=== PATIENT | female | born 1985 | race Caucasian/White ===

== ENCOUNTER 2017-02-08 07:05 | Inpatient (IN) | payer OTHER ==
[2017-02-08 07:31] LABS: Amorphous Sediment,Urine Rare /hpf; Appearance,Urine Cloudy (Clear); Bacteria,Urine Rare /hpf; Bilirubin,Urine Negative (Negative); Glucose,Urine (UA) Negative (Negative); Ketones,Urine Negative (Negative); Leukocyte Esterase,Urine Large (Negative); Mucus,Urine Rare /hpf; Nitrite,Urine Negative (Negative); PH, Urine 7.5 (5.0-8.0); Particle Count 12874; Protein,Urine Trace (Negative); RBC,Urine 3 /hpf (0-5); Specific Gravity,Urine 1.022 (1.001-1.035); Squamous Epithelial Cell,Urine 18 /hpf (0-4); UA Billing (MACRO vs. MICRO) MICRO; WBC,Urine 54 /hpf (0-5)
[2017-02-08] MEDS ORDERED: TERBUTALINE 1 MG/ML VIAL SQ PRN (07:51)
[2017-02-08] MEDS ORDERED: OXYTOCIN 10 UNIT/ML 1 ML VIAL IM PRN (07:51)
[2017-02-08] MEDS ORDERED: LIDOCAINE 1% (PF) 10 MG/ML (30 ML SDV) SQ PRN (07:51)
[2017-02-08] MEDS ORDERED: METHYLERGONOVINE 0.2 MG/ML 1 ML AMP IM PRN (07:51)
[2017-02-08] MEDS ORDERED: CARBOPROST TROMETHAMINE 250 MCG/ML 1 ML AMP IM PRN (07:51)
[2017-02-08] MEDS ORDERED: AMPICILLIN 2,000 MG in SODIUM CHLORIDE 0.9% 100 ML IVPB STA (07:51)
[2017-02-08] MEDS ORDERED: BETAMET ACET-BETAMETH SOD PHOS 6 MG/ML VIAL IM SCH (08:00)
[2017-02-08 08:03] VITALS: RESP 16
[2017-02-08] MEDS: LACTATED RINGERS 1,000 ML IV SCH ×2 (08:06→13:00)
[2017-02-08 08:27] LABS: Basophils # (A) 0.1 k/uL (0-0.2); Basophils % (A) 0 %; CH 30.7; CHCM 33.6; Eosinophils # (A) 0.2 k/uL (0-0.7); Eosinophils % (A) 1 %; HCT 36.7 % (34.0-46.0); HDW 2.47; HGB 12.2 gm/dL (11.4-16.0); Luc # (Auto) 0.21; Luc % (Auto) 1; Lymphocytes # (A) 2.3 k/uL (1.0-4.8); Lymphocytes % (A) 16 %; MCH 30.6 pg (25.0-35.0); MCHC 33.3 g/dL (31.0-37.0); Mean Platelet Volume 6.8; Monocytes # (A) 0.7 k/uL (0-1.0); Monocytes % (A) 5 %; Neutrophils % (A) 76 %; RBC 3.99 m/uL (3.80-5.40); RDW 12.8 % (11.5-15.5); WBC 14.5 k/uL (3.8-10.6); WBC (Perox) 14.68
[2017-02-08] MEDS ORDERED: MAGNESIUM SULFATE-D5W PMX 1 GM in DEXTROSE/WATER 1 100ML.BAG IVPB SCH (08:30)
[2017-02-08] MEDS ORDERED: MAGNESIUM SULFATE-WATER PMX 20 GM in WATER FOR INJECTION 1 500ML.BAG IV SCH (08:45)
[2017-02-08] MEDS ORDERED: MAGNESIUM SULFATE-WATER PMX 4 GM in WATER FOR INJECTION 1 50ML.BAG IVPB ONE (09:00)
--- NOTE | 2017-02-08 09:06 | P.HPOB ---
History of Present Illness H&P Date: 02/08/17 Chief Complaint: labor 31 year old presents at 31 weeks 2 days in labor. She is chika every 5-7 minutes and her cervix is 5/100/-2. heart tones 135-140 with moderate variability and reactive. Review of Systems All systems: negative Constitutional: Denies chills, Denies fever Eyes: denies blurred vision, denies pain Ears, nose, mouth and throat: Denies headache, Denies sore throat Cardiovascular: Denies chest pain, Denies shortness of breath Respiratory: Denies cough Gastrointestinal: Denies abdominal pain, Denies diarrhea, Denies nausea, Denies vomiting Genitourinary: Denies dysuria, Denies hematuria Musculoskeletal: Denies myalgias Integumentary: Denies pruritus, Denies rash Neurological: Denies numbness, Denies weakness Psychiatric: Denies anxiety, Denies depression Endocrine: Denies fatigue, Denies weight change Past Medical History Past Medical History: No Reported History Additional Past Medical History / Comment(s): Obstetric history: THis is her first . She has had care through [facility] with Dr Saavedra since 12 weeks. Her dating is by LMP and confirmed with early US. O neg, Rub Imm, RPR NR, Hep B neg. Did receive Rhogam on 3-14 at 29 weeks. normal anatomy US-male. History of Any Multi-Drug Resistant Organisms: None Reported Past Surgical History: Bariatric Surgery Additional Past Surgical History / Comment(s): Gastric Sleeve Procedure 2014 Past Psychological History: No Psychological Hx Reported Smoking Status: Never smoker Past Alcohol Use History: None Reported Past Drug Use History: None Reported Medications and Allergies Home Medications Medication Instructions Recorded Confirmed Type Pnv with Ca,No.72/Iron/FA 1 each PO DAILY 10/27/16 10/27/16 History [ Plus Tablet] Allergies Allergy/AdvReac Type Severity Reaction Status Date / Time No Known Allergies Allergy Verified 10/27/16 18:38 Exam Osteopathic Statement: *. No significant issues noted on an osteopathic structural exam other than those noted in the History and Physical/Consult. - Vital Signs Vital signs: Vital Signs Temp Pulse Resp BP 02/08/17 07:58 96.9 F L 78 16 116/72 Intake and Output 02/07/17 02/08/17 02/08/17 22:59 06:59 14:59 Other: Weight 108.862 kg Patient Weight 02/09/17 06:59 Weight 108.862 kg HEart: RRR Lungs: CTAB Abdomen: soft, nontender Extremeties: neg ella's Results Result Diagrams: 02/08/17 08:00 Abnormal Lab Results - Last 24 Hours (Table) 02/08/17 02/08/17 Range/Units 07:16 08:00 WBC 14.5 H (3.8-10.6) k/uL Neutrophils # 11.0 H (1.3-7.7) k/uL Urine Appearance Cloudy H (Clear) Urine Protein Trace H (Negative) Urine Blood Moderate H (Negative) Ur Leukocyte Esterase Large H (Negative) Urine WBC 54 H (0-5) /hpf Ur Squamous Epith Cells 18 H (0-4) /hpf Amorphous Sediment Rare H (None) /hpf Urine Bacteria Rare H (None) /hpf Urine Mucus Rare H (None) /hpf Assessment and Plan (1) labor in third trimester Status: Acute Plan: 1. I had a long discussion with the patient and her regarding and what to expect. We have a level I nursery so ideally she would be transferred to another facility with a NICU to deliver. I discussed the case with the physicians at [facility] and they will accept transfer of her if her cervix does not change within 2 hours. If she needs to delivery here she is well aware the baby will be stabilized and shipped to another facility. All questions were answered and she and the father of the baby expressed understanding. 2. I did start Magnesium sulfate for neuro protection 3. She will have celestone injection given 4. antibiotics for GBS ppx 5. US for size and position of fetus
[2017-02-08 09:10] VITALS: BMI 42.5
--- NOTE | 2017-02-08 09:56 | US ---
EXAMINATION TYPE: US OB >= 14 wk fetus DATE OF EXAM: 02/08/2017 9:45 AM COMPARISON: Previous study dated 10/27/2016. CLINICAL HISTORY: laborContractions. TECHNIQUE: Transabdominal (TA) GESTATIONAL AGE / DATING Physician Established: (31 weeks/4 days) EDC: 04/08/2017 Dates by Current Scan: (30 weeks/4 days) EDC: 04/15/2017 SURVEY IUP: Single PLACENTA: Anterior PREVIA: No Previa BASILIA: 12.3 cm Normal CERVICAL LENGTH (transabdominal: norm > 3.0cm): 2.4 cm BIOMETRY PRESENTATION: Vertex LIE: Longitudinal BPD: 7.7 cm 30 weeks / 6 days HC: 28.1 cm 30 weeks / 5 days AC: 30.0 cm 32 weeks / 0 days FL: 5.9 cm 30 weeks / 5 days ESTIMATED WEIGHT IN GRAMS: 1758 grams ESTIMATED WEIGHT IN LBS/OZS: 3 lbs. 14 oz. WEIGHT PERCENTAGE BASED ON ESTABLISHED DATES: 32.5% HC/AC: 1.0 Normal FL/AC: 21.1 Normal HEART RATE: 138 bpm RHYTHM: Normal Live IUP measuring 30 weeks 4 days. Short cervix measured transabdominally only per nurse with no si gn of funneling as visualized. IMPRESSION: CHU FETUS PRESENT IN A VERTEX LIE WITH A GESTATIONAL AGE OF 30 WEEKS 4 DAYS +/- 3 WEEKS. ESTIMA CRISTIN DATE OF CONFINEMENT BASED ON THIS EXAMINATION IS 04/15/2017
[2017-02-08] MEDS ORDERED: WITCH HAZEL 1 EACH MED..PAD TOPICAL PRN (11:20)
[2017-02-08] MEDS ORDERED: diphenhydrAMINE 25 MG CAP PO PRN (11:20)
[2017-02-08] MEDS ORDERED: ZOLPIDEM 5 MG TAB PO PRN (11:20)
[2017-02-08] MEDS ORDERED: Acetaminophen-Codeine 300-30mg TAB PO PRN ×2 (11:20)
[2017-02-08] MEDS ORDERED: diphenhydrAMINE 50 MG CAP PO PRN (11:20)
[2017-02-08] MEDS ORDERED: SIMETHICONE 80 MG CHEWABLE PO PRN (11:20)
[2017-02-08] MEDS ORDERED: IBUPROFEN 600 MG TAB PO PRN (11:20)
[2017-02-08] MEDS ORDERED: BENZOCAINE/MENTHOL SPRAY 1 GM/SPRAY AEROSOL TOPICAL PRN (11:20)
[2017-02-08] MEDS ORDERED: diphenhydrAMINE 50 MG/ML 1 ML VIAL IVP PRN ×2 (11:20)
[2017-02-08] MEDS ORDERED: HYDROCORTISONE 2.5% RECTAL CREAM 30 GM TUBE RECTAL PRN (11:20)
[2017-02-08] MEDS ORDERED: ACETAMINOPHEN TAB 325 MG TAB PO PRN (11:20)
[2017-02-08] MEDS ORDERED: Rhogam IMMUNE GLOBULIN 1,500 UNIT/1 ML IM ONE (11:20)
[2017-02-08] MEDS ORDERED: LANOLIN CREAM 5 GM TUBE TOPICAL PRN (11:20)
--- NOTE | 2017-02-08 11:25 | P.PROBDLV ---
Vaginal Delivery Note - . Vaginal Delivery Note: 31-year-old presented at 39 weeks and 2 days in active labor. Her cervix was 5 cm dilated, 100% effaced, -2 station. She is chika every 5-7 minutes. heart tones 135-140 with moderate variability and reactive. She was given one dose of Celestone and started on ampicillin prophylaxis. She was also started on magnesium sulfate. The plan was to send her to a tertiary facility if her cervix exam did not change. 2 hours later though her cervix was 8 cm dilated, her percent effaced and -2 station. She was too unstable to transfer. At 10:53 AM she was completely dilated so amniotomy was performed and clear fluid was noted. She pushed a couple times and delivered a vigorous viable male over intact perineum at 11 AM. Head delivered OA, anterior shoulder with the left shoulder delivered gentle downward traction followed by posterior shoulder and rest of body. Nose and mouth bulb suctioned, cord clamped and cut, placed on mother's abdomen. Apgars pending. Weight 3 lbs. 10 oz. Placenta delivered spontaneously, intact with three-vessel cord at 11:02 AM. Vagina, cervix, and perineum were inspected. Bilateral labial lacerations were repaired with 3-0 Vicryl. Estimated blood loss 200 mL. Mother is in stable condition and baby was taken to the nursery with the canine enforcement officer.
[2017-02-08] MEDS ORDERED: AMPICILLIN 1,000 MG in SODIUM CHLORIDE 0.9% 50 ML IVPB SCH (12:00)
[2017-02-08 17:11] VITALS: BP 125/72; PULSE 74; TEMP 98.3
[2017-02-08] MEDS ORDERED: SENNOSIDES-DOCUSATE SODIUM 1 EACH TAB PO SCH (20:00)
--- NOTE | 2017-02-11 13:03 | P.DS ---
Providers Date of admission: 02/08/17 08:02 Expected date of discharge: 02/08/17 Attending physician: Reema Stewart Primary care physician: Reema Stewart - Discharge Diagnosis(es) (1) labor in third trimester Status: Resolved (2) Normal vaginal delivery Status: Acute Hospital Course: 31-year-old female presented at 31 weeks and 2 days in active labor. She was given Celestone and magnesium sulfate as well as antibiotics. Her labor did not stop and she did deliver vaginally without capitation. The baby was taken to the nursery and stabilized by the clay processing labourer then shipped to [facility] facility. The patient's course was uncomplicated. Her bleeding was decreasing. She denied nausea, vomiting, chest and, shortness of breath or calf pain. She is able to tolerate a regular diet. She was discharged home about 4 hours after her delivery so she could go with her baby. Patient Condition at Discharge: Good Plan - Discharge Summary New Discharge Prescriptions: Ibuprofen [Motrin] 600 mg PO Q6HR PRN #30 tab PRN Reason: Mild Pain Or Fever >= 100.5 Discharge Medication List Pnv with Ca,No.72/Iron/FA [ Plus Tablet] 1 each PO DAILY 10/27/16 [ History] Folic Acid 1 mg PO DAILY 02/08/17 [History] Ibuprofen [Motrin] 600 mg PO Q6HR PRN #30 tab 02/08/17 [Rx] Follow up Appointment(s)/Referral(s): Ellyn Saavedra MD [REFERRING] - 6 Weeks Patient Instructions/Handouts: Vaginal Delivery (DC) Discharge Disposition: HOME SELF-CARE
== END 2017-02-08 17:40 | disposition home or self-care (01) | DRG 775 ==
LOC: FBPOP 07:05 → 4FBP 08:02
PROVIDERS: ADMIT Obstetrics & Gynecology; ATTEND Obstetrics & Gynecology
PROC: 10907ZC Drainage of Amniotic Fluid, Therapeutic from Products of Conception, Via Natural or Artificial Opening (ICD-10-PCS; principal; 2017-02-08)
PROC: 10E0XZZ Delivery of Products of Conception, External Approach (ICD-10-PCS; 2017-02-08)
PROC: 0UQMXZZ Repair Vulva, External Approach (ICD-10-PCS; 2017-02-08)
DX: O60.12X0 Preterm labor second trimester with preterm delivery second trimester, not applicable or unspecified (principal); O70.0 First degree perineal laceration during delivery; Z37.0 Single live birth; Z3A.31 31 weeks gestation of pregnancy; Z98.84 Bariatric surgery status
CPT/HCPCS: 59025; 76805; 80306; 81001; 82947; 85025; 85461; 86780; 86850; 86870; 86880; 86900; 86901; 88307; 96372; 99213

== ENCOUNTER → 2018-09-15 | Outpatient (CLI) | payer OTHER ==
--- NOTE | 2018-09-15 22:26 | MR ---
EXAMINATION TYPE: MR ankle RT wo con DATE OF EXAM: 09/15/2018 COMPARISON: None. HISTORY: Rt ankle pain x 2 mos and instability border. Standard multiplanar, multisequence MRI departmental protocol Multiplanar, multisequence images of the right ankle were acquired. FINDINGS: Distal Achilles tendon is intact. Plantar fascia is felt within normal limits. There is some fluid signal surrounding the peroneus tendons at level of distal fibula axial image 19. Some foci of increased signal are present particularly in the PL tendon. No full-thickness tear is s een. There is small to moderate posterior tibiotalar joint effusion surrounding the FHL axial image 18. No abnormal tendon signal or retracted tear is present. Extensor tendons anteriorly are intact. Anterior tibial talar and anterior talofibular ligaments are intact. Medial deltoid ligament is intac t. Ankle mortise symmetry is preserved. Loss of normal sinus tarsi fat is identified. Some heterogeneous increased areas of T2 signal in the anterior medial talus are noted. Mild spurring and narrowing hindfoot and midfoot articulations is pr esent including at level of Lisfranc joints.. 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 Correlate clinically. PL tendino sis.
== END | disposition home or self-care (01) ==
LOC: RADMRIMAIN 20:50
PROVIDERS: ATTEND Orthopaedic Surgery
DX: M67.873 Other specified disorders of tendon, right ankle and foot (principal); R93.7 Abnormal findings on diagnostic imaging of other parts of musculoskeletal system; M25.371 Other instability, right ankle; M25.571 Pain in right ankle and joints of right foot

== ENCOUNTER 2019-05-24 11:21 | Emergency (ER) | payer OTHER ==
[2019-05-24 11:29] VITALS: BP 139/90; PULSE 86; RESP 18; TEMP 98.2
[2019-05-24] MEDS ORDERED: DIPH,PERTUS(ACELL)TETVAC-LF 0.5 ML VIAL IM ONE (11:38)
[2019-05-24] MEDS ORDERED: LIDOCAINE 1% INJ 10MG/ML (20 ML MDV) SQ ONE (11:38)
--- NOTE | 2019-05-24 11:44 | ED ---
Upper Extremity HPI - General Chief Complaint: Extremity Injury, Upper Stated Complaint: Elbow Laceration-[facility] Time Seen by Provider: 05/24/19 11:30 Source: patient, RN notes reviewed Mode of arrival: ambulatory Limitations: no limitations - History of Present Illness Initial Comments: 34-year-old female presents emergency Department chief complaint laceration to her right elbow. Patient states she cut it while at work. She's not exactly sure what she cut it on. She is not sure when her last tetanus was. No active bleeding it was cleaned with alcohol. Patient has no active bleeding. Patient offers no other complaints. - Related Data Home Medications Medication Instructions Recorded Confirmed Pnv,Calcium 72/Iron/Folic Acid 1 each PO DAILY 10/27/16 10/27/16 [ Plus Tablet] Folic Acid 1 mg PO DAILY 02/08/17 02/08/17 Previous Rx's Medication Instructions Recorded Ibuprofen [Motrin] 600 mg PO Q6HR PRN #30 tab 02/08/17 Allergies Allergy/AdvReac Type Severity Reaction Status Date / Time No Known Allergies Allergy Verified 05/24/19 11:26 Review of Systems ROS Statement: Those systems with pertinent positive or pertinent negative responses have been documented in the HPI. ROS Other: All systems not noted in ROS Statement are negative. Past Medical History Past Medical History: No Reported History Additional Past Medical History / Comment(s): Obstetric history: THis is her first . She has had care through [facility] with Dr Saavedra since 12 weeks. Her dating is by LMP and confirmed with early US. O neg, Rub Imm, RPR NR, Hep B neg. Did receive Rhogam on 314 at 29 weeks. normal anatomy US-male. History of Any Multi-Drug Resistant Organisms: None Reported Past Surgical History: Bariatric Surgery Additional Past Surgical History / Comment(s): Gastric Sleeve Procedure 2015 Past Anesthesia/Blood Transfusion Reactions: No Reported Reaction Past Psychological History: No Psychological Hx Reported Smoking Status: Never smoker Past Alcohol Use History: None Reported Past Drug Use History: None Reported - Past Family History Father History Unknown: Yes Family Medical History: Diabetes Mellitus, Hypertension Mother History Unknown: Yes Family Medical History: Cancer, Diabetes Mellitus, Hypertension Brother(s) History Unknown: Yes Additional Family Medical History / Comment(s): brother was born wih cardica disease General Exam Limitations: no limitations General appearance: alert, in no apparent distress Head exam: Present: atraumatic, normocephalic, normal inspection Eye exam: Present: normal appearance, PERRL, EOMI. Absent: scleral icterus, conjunctival injection, periorbital swelling Neck exam: Present: normal inspection, full ROM. Absent: tenderness, meningismus, lymphadenopathy Respiratory exam: Present: normal lung sounds bilaterally. Absent: respiratory distress, wheezes, rales, rhonchi, stridor Cardiovascular Exam: Present: regular rate, normal rhythm, normal heart sounds. Absent: systolic murmur, diastolic murmur, rubs, gallop, clicks Extremities exam: Present: other (Right elbow there is a 1 cm laceration over the joint, no active bleeding) Course Vital Signs 05/24/19 11:26 Temperature 98.2 F Pulse Rate 86 Respiratory 18 Rate Blood Pressure 139/90 O2 Sat by Pulse 98 Oximetry Procedures - Laceration Laceration #1 Consent Obtained: verbal consent Indication: laceration Site: upper extremity (Right elbow) Size (cm): 1 Description: linear Depth: simple, single layer Anesthetic Used: lidocaine 1%, without epi Anesthesia Technique: local infiltration Amount (mls): 3 Pre-repair: wound explored, irrigated extensively, deep structures intact Type of Sutures: nylon Size of Sutures: 4-0 Number of Sutures: 2 Technique: simple, interrupted Patient Tolerated Procedure: well, no complications Medical Decision Making - Medical Decision Making 34-year-old female presents emergency department for right elbow laceration this was closed using sutures. Patient tolerated well wound care instructions given return parameters were given. Tetanus was updated Disposition Clinical Impression: Laceration of right elbow Disposition: HOME SELF-CARE Condition: Stable Instructions (If sedation given, give patient instructions): Laceration (ED), Care For Your Stitches (ED) Additional Instructions: Please return to the Emergency Department if symptoms worsen or any other concerns. Have sutures removed in 10 days Is patient prescribed a controlled substance at d/c from ED?: No Referrals: Bryan Benoit DO [Primary Care Provider] - 1-2 days Time of Disposition: 11:43
== END 2019-05-24 12:50 | disposition home or self-care (01) ==
LOC: EC 11:21
DX: S51.011A Laceration without foreign body of right elbow, initial encounter (principal); Z79.899 Other long term (current) drug therapy; Z23 Encounter for immunization; W45.8XXA Other foreign body or object entering through skin, initial encounter; Y92.69 Other specified industrial and construction area as the place of occurrence of the external cause; Y99.0 Civilian activity done for income or pay
CPT/HCPCS: 90715; 99282; 12001; 90471; J2001

== ENCOUNTER → 2021-04-13 | Outpatient (CLI) | payer BC ==
--- NOTE | 2021-04-13 11:58 | US ---
EXAMINATION TYPE: Transabdominal DATE OF EXAM: 04/13/2021 11:19 AM COMPARISON: NONE CLINICAL HISTORY: Z33.1 state, incidental. Spotting EXAM PERFORMED: Transvaginal (TV) and Transabdominal (TA) EXAM MEASUREMENTS: GESTATIONAL AGE / DATING Physician Established: Not yet established Dates by LMP (5 weeks/5 days) EDC: 12/09/2021 Dates by First Scan: No previous this is first scan Dates by Current Scan for: No pole seen at this time MATERNAL ANATOMY Uterus: 8.5 x 4.8 x 5.2 cm Right Ovary: 4.1 x 2.1 x 2.6 Left Ovary: 2.3 x 1.6 x 1.9 cm Post CDS / Adnexa: Cystic area right adnexa measuring 4.8 x 3.5 x 3.5 cm, this may represent a right ovarian corpus luteum cyst. Presence of free fluid: No Presence of corpus luteal cyst: No Presence of subchorionic bleed: No GESTATION / SURVEY MSD: 0.7 cm - Out of range IUP: No yolk sac or pole visualized at this time Date of LMP: 03/04/2022 Beta HcG (if available Not available at this time Anechoic area visualized in the mid uterus measuring 1.0 x 0.5 x 0.7 cm. No pole or yolk sac vi sualized. Cystic area right adnexa measuring 4.8 x 3.5 x 3.5 cm, possible pedunculated right ovarian cyst vs other IMPRESSION: There is a anechoic questionable gestational sac measuring 1 cm in the mid uterus. No pole or y olk sac is visualized. This may represent a very early intrauterine gestation, pseudogestational sac of ectopic , or an embryonic . Continued obstetric follow-up with beta hCG is recom mended, and ultrasound may be helpful. 4.8 cm cystic area in the right adnexa may represent a right corpus luteum cyst or other cystic struc ture . A follow-up sonographic study in 6 weeks is recommended.
== END | disposition home or self-care (01) ==
LOC: RADUSWWP 10:47
PROVIDERS: ATTEND Family Medicine
DX: O26.851 Spotting complicating pregnancy, first trimester (principal); Z3A.01 Less than 8 weeks gestation of pregnancy
CPT/HCPCS: 76801; 76817

== ENCOUNTER 2021-04-17 12:24 | Emergency (ER) | payer BC ==
[2021-04-17 12:29] VITALS: RESP 16; TEMP 98.3
--- NOTE | 2021-04-17 12:50 | ED ---
General Adult HPI - General Chief complaint: Vaginal Bleeding Stated complaint: 6wks preg, bleeding Time Seen by Provider: 04/17/21 12:27 Source: patient, RN notes reviewed Mode of arrival: ambulatory Limitations: no limitations - History of Present Illness Initial comments: 36-year-old female currently 6 weeks presents to the emergency ro om for vaginal bleeding. Patient started to have vaginal bleeding about 4 days ago. States her last period was 6 weeks ago. Patient has an appointment with her YARD BRAKEMAN in 2 days but has been seeing her primary care provider in the meantime. Patient reports that she had an hCG test drawn on the first or second of April. States that he started to have vaginal bleeding on the fourth so her primary care again ordered another test and it had decreased to 1697. Patient also had an ultrasound at that time which revealed a questionable gestational sac in the mid uterus without pole or yolk sac visualized. Continued follow-up recommended. She also had a 4.7 cm cystic area in the right adnexa that may represent right corpus luteum cyst or other cystic structure. Patient denies any pain throughout this ordeal. States her vaginal bleeding is slight in nature. Patient states she is due to see her YARD BRAKEMAN on . However she became concerned because thought she needed a RhoGAM injection in her primary care told her it was too early for this. She called her YARD BRAKEMAN who said she actually should have this and presented to the emergency room for RhoGAM.Patient has no other complaints at this time including shortness of breath, chest pain, abdominal pain, nausea or vomiting, headache, or visual changes. - Related Data Home Medications Medication Instructions Recorded Confirmed No Known Home Medications 04/17/21 04/17/21 Allergies Allergy/AdvReac Type Severity Reaction Status Date / Time amoxicillin AdvReac YEAST Verified 04/17/21 12:56 INFECTION Review of Systems ROS Statement: Those systems with pertinent positive or pertinent negative responses have been documented in the HPI. ROS Other: All systems not noted in ROS Statement are negative. Past Medical History Past Medical History: No Reported History Additional Past Medical History / Comment(s): Obstetric history: THis is her first . She has had care through [facility] with Dr Saavedra since 12 weeks. Her dating is by LMP and confirmed with early US. O neg, Rub Imm, RPR NR, Hep B neg. Did receive Rhogam on 3-14 at 29 weeks. normal anatomy US-male. History of Any Multi-Drug Resistant Organisms: None Reported Past Surgical History: Bariatric Surgery Additional Past Surgical History / Comment(s): Gastric Sleeve Procedure 2015 Past Anesthesia/Blood Transfusion Reactions: No Reported Reaction Past Psychological History: No Psychological Hx Reported Smoking Status: Former smoker Past Alcohol Use History: None Reported Past Drug Use History: None Reported - Past Family History Father History Unknown: Yes Family Medical History: Diabetes Mellitus, Hypertension Mother History Unknown: Yes Family Medical History: Cancer, Diabetes Mellitus, Hypertension Brother(s) History Unknown: Yes Additional Family Medical History / Comment(s): brother was born wih cardica disease General Exam Limitations: no limitations General appearance: alert, in no apparent distress Head exam: Present: atraumatic Eye exam: Present: normal appearance, PERRL, EOMI. Absent: scleral icterus, conjunctival injection, periorbital swelling, periorbital tenderness ENT exam: Present: normal exam, mucous membranes moist Neck exam: Present: normal inspection, full ROM. Absent: tenderness Respiratory exam: Present: normal lung sounds bilaterally. Absent: respiratory distress, wheezes Cardiovascular Exam: Present: regular rate, normal rhythm, normal heart sounds GI/Abdominal exam: Present: soft, normal bowel sounds. Absent: distended, tenderness, guarding, rebound, rigid Neurological exam: Present: alert Course Vital Signs 04/17/21 12:25 Temperature 98.3 F Pulse Rate 76 Respiratory 16 Rate Blood Pressure 138/97 O2 Sat by Pulse 100 Oximetry Medical Decision Making - Medical Decision Making Vitals are stable. Patient is well appearing. Patient has having minimal vaginal bleeding on telemetry exam. No adnexal tenderness. CBC CMP unremarkable. Urinalysis does show 130 red blood cells likely secondary to vaginal bleeding. Patient's ultrasound from days was reviewed, as noted in HPI. Patient's hCG has also decreased from 1700 April 3 to 137 on the , and 99.1 today. Blood type A- Patient is essentially here for a RhoGAM injection which we will administer. she is scheduled to see her YARD BRAKEMAN 2 days from now who is aware of the bleeding and decrease in hcg. I did discuss strict return parameters. - Lab Data Result diagrams: 04/17/21 12:52 04/17/21 12:52 Lab Results 04/17/21 04/17/21 04/17/21 Range/Units 12:52 12:52 12:52 WBC 7.6 (3.8-10.6) k/uL RBC 4.51 (3.80-5.40) m/uL Hgb 13.8 (11.4-16.0) gm/dL Hct 41.8 (34.0-46.0) % MCV 92.8 (80.0-100.0) fL MCH 30.6 (25.0-35.0) pg MCHC 33.0 (31.0-37.0) g/dL RDW 12.8 (11.5-15.5) % Plt Count 298 (150-450) k/uL MPV 7.1 Neutrophils % 53 % Lymphocytes % 32 % Monocytes % 7 % Eosinophils % 4 % Basophils % 1 % Neutrophils # 4.1 (1.3-7.7) k/uL Lymphocytes # 2.5 (1.0-4.8) k/uL Monocytes # 0.5 (0-1.0) k/uL Eosinophils # 0.3 (0-0.7) k/uL Basophils # 0.1 (0-0.2) k/uL Sodium 141 (137-145) mmol/L Potassium 4.3 (3.5-5.1) mmol/L Chloride 106 (98-107) mmol/L Carbon Dioxide 29 (22-30) mmol/L Anion Gap 6 mmol/L BUN 19 H (7-17) mg/dL Creatinine 0.57 (0.52-1.04) mg/dL Est GFR (CKD-EPI)AfAm >90 (>60 ml/min/1.73 sqM) Est GFR (CKD-EPI)NonAf >90 (>60 ml/min/1.73 sqM) Glucose 100 H (74-99) mg/dL Calcium 9.8 (8.4-10.2) mg/dL Total Bilirubin <0.1 L (0.2-1.3) mg/dL AST 28 (14-36) U/L ALT 26 (4-34) U/L Alkaline Phosphatase 75 (38-126) U/L Total Protein 6.9 (6.3-8.2) g/dL Albumin 4.1 (3.5-5.0) g/dL HCG, Quant 99.1 mIU/mL Urine Color Urine Appearance (Clear) Urine pH (5.0-8.0) Ur Specific [place] (1.001-1.035) Urine Protein (Negative) Urine Glucose (UA) (Negative) Urine Ketones (Negative) Urine Blood (Negative) Urine Nitrite (Negative) Urine Bilirubin (Negative) Urine Urobilinogen (<2.0) mg/dL Ur Leukocyte Esterase (Negative) Urine RBC (0-5) /hpf Urine WBC (0-5) /hpf Ur Squamous Epith Cells (0-4) /hpf Urine Mucus (None) /hpf Blood Type A Negative Blood Type Recheck A Neg Bld Type Recheck Status No 04/17/21 Range/Units 12:52 WBC (3.8-10.6) k/uL RBC (3.80-5.40) m/uL Hgb (11.4-16.0) gm/dL Hct (34.0-46.0) % MCV (80.0-100.0) fL MCH (25.0-35.0) pg MCHC (31.0-37.0) g/dL RDW (11.5-15.5) % Plt Count (150-450) k/uL MPV Neutrophils % % Lymphocytes % % Monocytes % % Eosinophils % % Basophils % % Neutrophils # (1.3-7.7) k/uL Lymphocytes # (1.0-4.8) k/uL Monocytes # (0-1.0) k/uL Eosinophils # (0-0.7) k/uL Basophils # (0-0.2) k/uL Sodium (137-145) mmol/L Potassium (3.5-5.1) mmol/L Chloride (98-107) mmol/L Carbon Dioxide (22-30) mmol/L Anion Gap mmol/L BUN (7-17) mg/dL Creatinine (0.52-1.04) mg/dL Est GFR (CKD-EPI)AfAm (>60 ml/min/1.73 sqM) Est GFR (CKD-EPI)NonAf (>60 ml/min/1.73 sqM) Glucose (74-99) mg/dL Calcium (8.4-10.2) mg/dL Total Bilirubin (0.2-1.3) mg/dL AST (14-36) U/L ALT (4-34) U/L Alkaline Phosphatase (38-126) U/L Total Protein (6.3-8.2) g/dL Albumin (3.5-5.0) g/dL HCG, Quant mIU/mL Urine Color Yellow Urine Appearance Clear (Clear) Urine pH 5.5 (5.0-8.0) Ur Specific [place] 1.026 (1.001-1.035) Urine Protein Negative (Negative) Urine Glucose (UA) Negative (Negative) Urine Ketones Negative (Negative) Urine Blood Large H (Negative) Urine Nitrite Negative (Negative) Urine Bilirubin Negative (Negative) Urine Urobilinogen <2.0 (<2.0) mg/dL Ur Leukocyte Esterase Negative (Negative) Urine RBC 130 H (0-5) /hpf Urine WBC 1 (0-5) /hpf Ur Squamous Epith Cells <1 (0-4) /hpf Urine Mucus Rare H (None) /hpf Blood Type Blood Type Recheck Bld Type Recheck Status Disposition Clinical Impression: Threatened miscarriage Disposition: HOME SELF-CARE Condition: Good Instructions (If sedation given, give patient instructions): Threatened Mis carriage (ED) Additional Instructions: Please follow up with her YARD BRAKEMAN on . Do not have intercourse and make sure to do pelvic rest. If you start to have worsening symptoms such as worsening vaginal bleeding or severe abdominal pain return to the emergency room. Is patient prescribed a controlled substance at d/c from ED?: No Referrals: Bryan Benoit DO [Primary Care Provider] - 1-2 days Time of Disposition: 13:35
[2021-04-17 13:13] LABS: Basophils # (A) 0.1 k/uL (0-0.2); Basophils % (A) 1 %; Eosinophils # (A) 0.3 k/uL (0-0.7); Eosinophils % (A) 4 %; HCT 41.8 % (34.0-46.0); HGB 13.8 gm/dL (11.4-16.0); Lymphocytes # (A) 2.5 k/uL (1.0-4.8); Lymphocytes % (A) 32 %; MCH 30.6 pg (25.0-35.0); MCV 92.8 fL (80.0-100.0); Mean Platelet Volume 7.1; Monocytes # (A) 0.5 k/uL (0-1.0); Monocytes % (A) 7 %; Neutrophils # (A) 4.1 k/uL (1.3-7.7); Neutrophils % (A) 53 %; Platelet Count 298 k/uL (150-450); RBC 4.51 m/uL (3.80-5.40); RDW 12.8 % (11.5-15.5); WBC 7.6 k/uL (3.8-10.6)
[2021-04-17 13:16] LABS: Appearance,Urine Clear (Clear); Bilirubin,Urine Negative (Negative); Blood,Urine Large (Negative); Color,Urine Yellow; Glucose,Urine (UA) Negative (Negative); Ketones,Urine Negative (Negative); Leukocyte Esterase,Urine Negative (Negative); Mucus,Urine Rare /hpf; Nitrite,Urine Negative (Negative); PH, Urine 5.5 (5.0-8.0); Protein,Urine Negative (Negative); RBC,Urine 130 /hpf (0-5); Specific Gravity,Urine 1.026 (1.001-1.035); Squamous Epithelial Cell,Urine <1 /hpf (0-4); Urobilinogen,Urine <2.0 mg/dL (<2.0); WBC,Urine 1 /hpf (0-5)
[2021-04-17 13:23] LABS: ALT 26 U/L (4-34); AST 28 U/L (14-36); African American GFR (CKD) >90 (>60 ml/min/1.73 sqM); Albumin 4.1 g/dL (3.5-5.0); Alkaline Phosphatase 75 U/L (38-126); Anion Gap 6 mmol/L; Blood Urea Nitrogen 19 mg/dL (7-17); Calcium 9.8 mg/dL (8.4-10.2); Carbon Dioxide 29 mmol/L (22-30); Chloride 106 mmol/L (98-107); Glucose 100 mg/dL (74-99); Non-African American GFR(CKD) >90 (>60 ml/min/1.73 sqM); Potassium 4.3 mmol/L (3.5-5.1); Sodium 141 mmol/L (137-145); Total Bilirubin <0.1 mg/dL (0.2-1.3); Total Protein 6.9 g/dL (6.3-8.2)
[2021-04-17 13:39] LABS: HCG,Quantitative Serum 99.1 mIU/mL
[2021-04-17] MEDS ORDERED: Rhogam IMMUNE GLOBULIN 1,500 UNIT/1 ML IM STA (13:48)
[2021-04-17 14:23] VITALS: BP 136/87; PULSE 81
== END 2021-04-17 14:54 | disposition home or self-care (01) ==
LOC: EC 12:24
DX: O20.0 Threatened abortion (principal); Z3A.01 Less than 8 weeks gestation of pregnancy; Z87.891 Personal history of nicotine dependence
CPT/HCPCS: 36415; 86900; 86901; 80053; 85025; 86850; 81001; 84702; 99284; 96372; J2790

== ENCOUNTER → 2021-04-30 | Outpatient (CLI) | payer BC | END | disposition home or self-care (01) | LOC: LABT 14:22 | PROVIDERS: ATTEND Obstetrics & Gynecology | DX: O03.4 Incomplete spontaneous abortion without complication (principal) | CPT/HCPCS: 36415; 84702 ==

== ENCOUNTER → 2022-03-21 | Outpatient (CLI) | payer BC ==
--- NOTE | 2022-03-21 13:17 | CT ---
EXAMINATION TYPE: CT abdomen pelvis w con DATE OF EXAM: 03/21/2022 COMPARISON: No previous CT scan is available for comparison. HISTORY: Diverticulitis, groin swelling CT DLP: 2254 mGycm Automated exposure control for dose reduction was used. TECHNIQUE: Helical acquisition of images was performed from the lung bases through the pelvis. CONTRAST: Performed with Oral Contrast and with IV Contrast, patient injected with 100 mL of Isovue 300. FINDINGS: LUNG BASES: No significant abnormality is appreciated. LIVER/GB: Cholelithiasis without evidence of acute cholecystitis. No definite hepatic focal lesion. PANCREAS: No significant abnormality is seen. SPLEEN: No significant abnormality is seen. ADRENALS: No significant abnormality is seen. KIDNEYS: Unremarkable kidneys. FREE AIR: No free air is visualized. RETROPERITONEAL ADENOPATHY: None visualized REPRODUCTIVE ORGANS: Grossly unremarkable uterus. Bilateral ovarian cysts measuring up to 4.2 cm on t he right side and 3.1 cm on the left side, for further ultrasound assessment. URINARY BLADDER: No significant abnormality is seen. PELVIC ADENOPATHY: No pathologically enlarged pelvic lymph nodes. OSSEOUS STRUCTURES: No aggressive bone lesion. BOWEL: Previous gastric surgery. Hiatal hernia containing portion of the stomach. Unremarkable duode num and small bowel. Suboptimal assessment of the small and large bowel due to paucity of intra-abdom inal fat. Scattered colonic diverticulosis without evidence of acute diverticulitis. Normal appendix. OTHER: Unremarkable abdominal aorta. No sizable ascites. Prominent anterior abdominal wall subcutaneo us vessels. Density seen in the left inguinal region which could be related to previous inguinal mary grace ia repair versus small inguinal hernia. IMPRESSION: No evidence of acute diverticulitis. Left inguinal density which could be related to previous inguina l hernia repair or a small left inguinal hernia. Please correlate clinically. Other incidental findin gs and recommendations as detailed above.
== END | disposition home or self-care (01) ==
LOC: RADCTMAIN 07:31
PROVIDERS: ATTEND Surgery Plastic and Reconstructive Surgery
DX: K57.30 Diverticulosis of large intestine without perforation or abscess without bleeding (principal); K80.20 Calculus of gallbladder without cholecystitis without obstruction; N83.202 Unspecified ovarian cyst, left side; N83.201 Unspecified ovarian cyst, right side; K44.9 Diaphragmatic hernia without obstruction or gangrene
CPT/HCPCS: 74177; Q9967

== ENCOUNTER → 2022-04-10 | Outpatient (CLI) | payer BC ==
[2022-04-10 13:19] LABS: INR 0.9 (<1.2); Partial Thromboplastin Time 23.5 sec (22.0-30.0); Prothrombin Time 10.3 sec (9.0-12.0)
[2022-04-10 18:17] LABS: HGB 12.6 g/dL (12.0-15.0); MCH 29.4 pg (27.0-32.0); MCHC 30.7 g/dL (32.0-37.0); MCV 95.8 fL (80.0-97.0); Mean Platelet Volume 10.1 fL (9.5-12.2); NRBC Per 100 WBC 0 /100 WBCS (0.0-0.0); Platelet Count 255 X 10*3/uL (140-440); RBC 4.28 X 10*6/uL (4.10-5.20); RDW 14.1 % (11.5-14.5); WBC 4.98 X 10*3/uL (4.50-10.00)
[2022-04-10 18:30] LABS: Chol/HDL Ratio 2.52 Ratio; LDL Cholesterol,Calculated 80.2 mg/dL (0.0-131.0); Prealbumin 22.1 mg/dL (18.0-42.0)
[2022-04-10 19:04] LABS: % Iron Saturation 23.86 (12.00-45.00); ALT 25 U/L (8-44); AST 26 U/L (13-35); African American GFR (CKD) 130.2 (60.0-200.0); Albumin 3.9 g/dL (3.8-4.9); Albumin/Globulin Ratio 1.54 (1.60-3.17); Alkaline Phosphatase 85 U/L (41-126); BUN/Creat Ratio 18.89 Ratio (12.00-20.00); Blood Urea Nitrogen 12.9 mg/dL (9.0-27.0); Calcium 9.4 mg/dL (8.7-10.3); Carbon Dioxide 24.1 mmol/L (20.0-27.5); Chloride 111 mmol/L (96-109); Ferritin 64.7 ng/mL (10.0-291.0); Globulin 2.6 g/dL (1.6-3.3); Glucose 101 mg/dL (70-110); Iron 85 ug/dL (50-170); Magnesium 1.9 mg/dL (1.5-2.4); Non-African American GFR(CKD) 112.4 (60.0-200.0); Phosphorus 3.5 mg/dL (2.4-5.1); Potassium 3.1 mmol/L (3.5-5.5); Sodium 145 mmol/L (135-145); Total Iron Binding Capacity 354 ug/dL (228-460); Total Protein 6.5 g/dL (6.2-8.2)
[2022-04-11 12:11] LABS: Zinc, Serum 79 ug/dL (60-130)
[2022-04-12 06:13] LABS: Vitamin A 51 ug/dL (38-106)
[2022-04-12 06:25] LABS: Vit B1(Thiamine) 50 ug/L (38-122)
== END | disposition home or self-care (01) ==
LOC: LABWHC1 12:04
PROVIDERS: ATTEND Surgery Plastic and Reconstructive Surgery
DX: E89.1 Postprocedural hypoinsulinemia (principal); E21.1 Secondary hyperparathyroidism, not elsewhere classified; D50.8 Other iron deficiency anemias; E44.0 Moderate protein-calorie malnutrition; E55.9 Vitamin D deficiency, unspecified; K74.1 Hepatic sclerosis; N19 Unspecified kidney failure; K50.90 Crohn's disease, unspecified, without complications
CPT/HCPCS: 36415; 80053; 80061; 82306; 82525; 82607; 82728; 82746; 83036; 83540; 83550; 83735; 83970; 84100; 84134; 84255; 84425; 84443; 84590; 84630; 85027; 85610; 85730; 93005

== ENCOUNTER 2022-08-28 08:13 | Emergency (ER) | payer BC ==
[2022-08-28 08:19] VITALS: TEMP 98
--- NOTE | 2022-08-28 08:53 | ED ---
Back Pain HPI - General Chief Complaint: Back Pain/Injury Stated Complaint: back pain Time Seen by Provider: 08/28/22 08:24 Source: patient, RN notes reviewed Mode of arrival: ambulatory Limitations: no limitations - History of Present Illness Initial Comments: 37-year-old female presents emergency Department with chief complaint of back pain. Patient states that the pain started a few days ago after moving things quickly out of her yard. Patient states she has pain with wrist and bending and moving. Patient does not feel short of breath no anterior chest pain no abdominal pain denies any bowel, bladder incontinence or retention. He also anesthesias. No lower extremity weakness. - Related Data Previous Rx's Medication Instructions Recorded Cyclobenzaprine [Flexeril] 10 mg PO TID PRN #15 tab 08/28/22 Ibuprofen [Motrin] 600 mg PO Q8HR PRN #20 tab 08/28/22 Allergies Allergy/AdvReac Type Severity Reaction Status Date / Time amoxicillin AdvReac YEAST Verified 08/28/22 08:19 INFECTION Review of Systems ROS Statement: Those systems with pertinent positive or pertinent negative responses have been documented in the HPI. ROS Other: All systems not noted in ROS Statement are negative. Past Medical History Past Medical History: Hypertension Additional Past Medical History / Comment(s): Obstetric history: THis is her first . She has had care through [facility] with Dr Saavedra since 12 weeks. Her dating is by LMP and confirmed with early US. O neg, Rub Imm, RPR NR, Hep B neg. Did receive Rhogam on 3-14 at 29 weeks. normal anatomy US-male. History of Any Multi-Drug Resistant Organisms: None Reported Past Surgical History: Bariatric Surgery Additional Past Surgical History / Comment(s): Gastric Sleeve Procedure 2015 Past Anesthesia/Blood Transfusion Reactions: No Reported Reaction Past Psychological History: ADD/ADHD Smoking Status: Former smoker Past Alcohol Use History: None Reported Past Drug Use History: None Reported - Past Family History Father History Unknown: Yes Family Medical History: Diabetes Mellitus, Hypertension Mother History Unknown: Yes Family Medical History: Cancer, Diabetes Mellitus, Hypertension Brother(s) History Unknown: Yes Additional Family Medical History / Comment(s): brother was born wih cardica disease General Exam Limitations: no limitations General appearance: alert, in no apparent distress Head exam: Present: atraumatic, normocephalic, normal inspection Eye exam: Present: normal appearance, PERRL, EOMI. Absent: scleral icterus, conjunctival injection, periorbital swelling ENT exam: Present: normal exam, normal oropharynx, mucous membranes moist Neck exam: Present: normal inspection, full ROM. Absent: tenderness, meningismus, lymphadenopathy Respiratory exam: Present: normal lung sounds bilaterally. Absent: respiratory distress, wheezes, rales, rhonchi, stridor, chest wall tenderness Cardiovascular Exam: Present: regular rate, normal rhythm, normal heart sounds. Absent: systolic murmur, diastolic murmur, rubs, gallop, clicks GI/Abdominal exam: Present: soft, normal bowel sounds. Absent: distended, tenderness, guarding, rebound, rigid Extremities exam: Present: normal inspection, full ROM, normal capillary refill. Absent: tenderness, pedal edema, joint swelling, calf tenderness Back exam: Present: full ROM, tenderness, muscle spasm, paraspinal tenderness, vertebral tenderness (Thoracic) Neurological exam: Present: alert, oriented X3, CN II-XII intact Course Vital Signs 08/28/22 08:16 Temperature 98 F Pulse Rate 84 Respiratory 16 Rate Blood Pressure 135/90 O2 Sat by Pulse 100 Oximetry Medical Decision Making - Medical Decision Making 37 show female presented for thoracic back pain. Patient has thoracic strain after moving objects at home. She is brought intact no red flag symptoms. Patient discharged in stable condition. a Disposition Clinical Impression: Strain of thoracic back region Disposition: HOME SELF-CARE Condition: Stable Instructions (If sedation given, give patient instructions): Thoracic Back Strain (ED) Additional Instructions: Please return to the Emergency Department if symptoms worsen or any other concerns. Prescriptions: Cyclobenzaprine [Flexeril] 10 mg PO TID PRN #15 tab PRN Reason: Muscle Spasm Ibuprofen [Motrin] 600 mg PO Q8HR PRN #20 tab PRN Reason: Pain Is patient prescribed a controlled substance at d/c from ED?: No Referrals: Bryan Benoit DO [Primary Care Provider] - 1-2 days Time of Disposition: 09:51
--- NOTE | 2022-08-28 09:39 | XR ---
EXAMINATION TYPE: XR thoracic spine 2V DATE OF EXAM: 08/28/2022 9:34 AM INDICATION: Patient age:Female; 37 years old; Reason for study: pain; PHH. COMPARISON: Thoracic spine radiograph 07/16/2012. TECHNIQUE: 3 views of the thoracic spine in Frontal, swimmer's, and lateral projections. FINDINGS: No evidence of acute fracture. Pedicles are intact. There is no evidence of disk space narrowing or l oss of vertebral body height. There is normal alignment of the thoracic vertebral bodies. Mild multil evel degenerative disc disease with disc space narrowing and anterior osteophytosis. Visualized lungs are clear. IMPRESSION: 1. No acute osseous pathology. 2. Mild degenerative disc disease.
[2022-08-28] MEDS ORDERED: ACET/COD 300 MG/30 MG STARTER PACK 6 TAB BTL PO STA (09:51)
[2022-08-28 10:33] VITALS: BP 137/89; PULSE 90; RESP 18
== END 2022-08-28 10:33 | disposition home or self-care (01) ==
LOC: EC 08:13
DX: S29.012A Strain of muscle and tendon of back wall of thorax, initial encounter (principal); I10 Essential (primary) hypertension; Z88.0 Allergy status to penicillin; X50.0XXA Overexertion from strenuous movement or load, initial encounter
CPT/HCPCS: 72070; 99283

== ENCOUNTER 2023-05-08 20:10 | Emergency (ER) | payer BC, OTHER ==
[2023-05-08 20:26] VITALS: TEMP 98.5
[2023-05-08] MEDS ORDERED: KETOROLAC 15 MG/ML 1 ML VIAL IM STA (20:33)
--- NOTE | 2023-05-08 20:38 | ED ---
Extremity Problem HPI - General Chief complaint: Extremity Problem,Nontraumatic Stated complaint: Rt knee pain Time Seen by Provider: 05/08/23 20:29 Source: patient, RN notes reviewed Mode of arrival: ambulatory Limitations: no limitations - History of Present Illness Initial comments: Patient is a 38-year-old female presenting to the emergency room with complaints of right knee pain ongoing for approximately 2-3 days without any significant increase in intensity but persisting pain. She reports that the pain is pressure like sensation around the patellar region without any specific point tenderness. She denies any range of motion impairment but does state that the pain is worse with extension rather than flexion. She also reports with extension she has some pain posteriorly. She denies any swelling, redness or known trauma. She denies any previous injuries. She is unable to identify any aggravating factors prior to the pain starting. She denies any numbness or tingling in the extremity. She has a past medical history significant for hypertension. - Related Data Previous Rx's Medication Instructions Recorded Cyclobenzaprine [Flexeril] 10 mg PO TID PRN #15 tab 08/28/22 Ibuprofen [Motrin] 600 mg PO Q8HR PRN #20 tab 08/28/22 Acetaminophen-Codeine 300-30mg 1 - 2 tab PO Q4-6H PRN 3 Days #18 05/08/23 [Tylenol w/codeine #3] tablet Allergies Allergy/AdvReac Type Severity Reaction Status Date / Time amoxicillin AdvReac YEAST Verified 05/08/23 20:25 INFECTION Review of Systems ROS Statement: Those systems with pertinent positive or pertinent negative responses have been documented in the HPI. ROS Other: All systems not noted in ROS Statement are negative. Past Medical History Past Medical History: Hypertension Additional Past Medical History / Comment(s): Obstetric history: THis is her first . She has had care through [facility] with Dr Saavedra since 12 weeks. Her dating is by LMP and confirmed with early US. O neg, Rub Imm, RPR NR, Hep B neg. Did receive Rhogam on 3-14 at 29 weeks. normal anatomy US-male. History of Any Multi-Drug Resistant Organisms: None Reported Past Surgical History: Bariatric Surgery Additional Past Surgical History / Comment(s): Gastric Sleeve Procedure 2014 Past Anesthesia/Blood Transfusion Reactions: No Reported Reaction Past Psychological History: ADD/ADHD Smoking Status: Former smoker Past Alcohol Use History: None Reported Past Drug Use History: None Reported - Past Family History Father History Unknown: Yes Family Medical History: Diabetes Mellitus, Hypertension Mother History Unknown: Yes Family Medical History: Cancer, Diabetes Mellitus, Hypertension Brother(s) History Unknown: Yes Additional Family Medical History / Comment(s): brother was born wih cardica disease General Exam Limitations: no limitations General appearance: alert, in no apparent distress, obese Head exam: Present: atraumatic, normocephalic, normal inspection Eye exam: Present: normal appearance, PERRL, EOMI. Absent: scleral icterus, conjunctival injection, periorbital swelling ENT exam: Present: normal exam, mucous membranes moist Neck exam: Present: normal inspection, full ROM Respiratory exam: Absent: respiratory distress, accessory muscle use Cardiovascular Exam: Present: regular rate GI/Abdominal exam: Absent: distended Right Knee exam: Present: normal inspection, full ROM, full knee extension. Absent: tenderness (Complains of denies pain around patella relation pressure-like in nature no point tenderness.), swelling, abrasion, laceration, ecchymosis, deformity, crepitus, dislocation, erythema, effusion Neurovascular tendon exam: Present: no vascular compromise Gait: observed and normal Back exam: Present: normal inspection Neurological exam: Present: alert, oriented X3, CN II-XII intact Psychiatric exam: Present: normal affect, normal mood Course Vital Signs 05/08/23 05/08/23 20:22 23:02 Temperature 98.5 F 98.5 F Pulse Rate 77 78 Respiratory 18 16 Rate Blood Pressure 140/82 135/78 O2 Sat by Pulse 98 98 Oximetry Medical Decision Making - Medical Decision Making Was pt. sent in by a medical professional or institution (, PA, MOLD SHOP SUPERVISOR, urgent care, hospital, or fdc...) When possible be specific @ -No Did you speak to anyone other than the patient for history (EMS, parent, family, police, friend...)? What history was obtained from this source @ -No Did you review nursing and triage notes (agree or disagree)? Why? @ -I reviewed and agree with nursing and triage notes Were old charts reviewed (outside hosp., previous admission, EMS record, old EKG, old radiological studies, urgent care reports/EKG's, fdc records)? Report findings @ -No old charts were reviewed Differential Diagnosis (chest pain, altered mental status, abdominal pain women, abdominal pain men, vaginal bleeding, weakness, fever, dyspnea, syncope, headac he, dizziness, GI bleed, back pain, seizure, CVA, palpatations, mental health, musculoskeletal)? @ -Differential Musculoskeletal Muscular strain, contusion, ligament sprain, fracture, arthritis, septic arthritis, bursitis, cellulitis, muscle spasm, nerve compression, DVT, arterial occlusion, herpes zoster, electrolyte abnormality, tumor.... This is not meant to be in all inclusive list EKG interpreted by me (3pts min.). @ -None done X-rays interpreted by me (1pt min.). @ -X-ray right knee: No fracture or dislocation. Joint space well maintained. Soft tissue without abnormalities. CT interpreted by me (1pt min.). @ -None done U/S interpreted by me (1pt. min.). @ -None done What testing was considered but not performed or refused? (CT, X-rays, U/S, labs)? Why? @ -None What meds were considered but not given or refused? Why? @ -None Did you discuss the management of the patient with other professionals (professionals i.e. , PA, MOLD SHOP SUPERVISOR, lab, RT, psych nurse, social insurance analyst, computer equipment repairer, teacher, strike warfare/missile systems officer, egg caser)? Give summary @ -No Was smoking cessation discussed for >3mins.? @ -No Was critical care preformed (if so, how long)? @ -No Were there social determinants of health that impacted care today? How? (Homelessness, low income, unemployed, alcoholism, drug addiction, transportation, low edu. Level, literacy, decrease access to med. care, prison, rehab)? @ -No Was there de-escalation of care discussed even if they declined (Discuss DNR or withdrawal of care, Hospice)? DNR status @ -No What co-morbidities impacted this encounter? (DM, HTN, Smoking, COPD, CAD, Cancer, CVA, ARF, Chemo, Hep., AIDS, mental health diagnosis, sleep apnea, morbid obesity)? @ -None Was patient admitted / discharged? Hospital course, mention meds given and route, prescriptions, significant lab abnormalities, going to OR and other pertinent info. @ -38-year-old female presenting to the emergency room with pain which is pressure-like to her right knee without any known trauma. Pain worse with extension but full range of motion. Due to body habitus will obtain x-ray no indication for laboratory studies. Will give Toradol IM for pain and monitor. X-ray negative for acute findings. Pain improved with Toradol. Findings discussed with patient. No indication for further workup at this time. Encouraged range of motion as tolerated, rest, ice and elevation along with [id number] use of Tylenol 3 prescription or Motrin [id number] as needed for pain advised follow-up with primary care provider and avoidance of high impact activity. Questions and concerns answered. Return parameters the emergency room discussed. Will discharge home in stable condition on Tylenol 3 for right knee pain as needed advising follow-up with primary care provider. Undiagnosed new problem with uncertain prognosis? @ -No Drug Therapy requiring intensive monitoring for toxicity (Heparin, Nitro, Insulin, Cardizem)? @ -No Were any procedures done? @ -No Diagnosis/symptom? @ -Right knee pain Acute, or Chronic, or Acute on Chronic? @ -Acute Uncomplicated (without systemic symptoms) or Complicated (systemic symptoms)? @ -Uncomplicated Side effects of treatment? @ -No Exacerbation, Progression, or Severe Exacerbation? @ -No Poses a threat to life or bodily function? How? (Chest pain, [place], [place], pneumonia, PE, COPD, DKA, ARF, appy, cholecystitis, CVA, Diverticulitis, Homicidal, Suicidal, threat to staff... and all critical care pts) @ -No Case discussed with Dr. Morelos - Radiology Data Radiology results: report reviewed, image reviewed Disposition Clinical Impression: Right knee pain Disposition: HOME SELF-CARE Condition: Stable Additional Instructions: Please continue conservative management with R. I. C. E. Rest joint when possi ble, apply ice for 20 minute increments every 2-3 hours, keep compression with Darrel wrap intact when possible. Elevate joint when possible. Utilize Tylenol 3 prescription or ibuprofen as needed for pain. Please follow-up with your primary care provider. Please return to the Emergency Department if symptoms worsen or any other concerns. Prescriptions: Acetaminophen-Codeine 300-30mg [Tylenol w/codeine #3] 1 - 2 tab PO Q4-6H PRN 3 Days #18 tablet PRN Reason: Pain Is patient prescribed a controlled substance at d/c from ED?: Yes When asked, does pt state using other controlled substances?: No If prescribed controlled substance>3 days was MAPS reviewed?: Prescribed <3 Days Referrals: Bryan Benoit DO [Primary Care Provider] - 1-2 days Time of Disposition: 22:48
--- NOTE | 2023-05-08 21:22 | XR ---
EXAMINATION TYPE: XR knee complete RT DATE OF EXAM: 05/08/2023 CLINICAL HISTORY: pain TECHNIQUE: Three views of the right knee are obtained. COMPARISON: None. FINDINGS: There is no acute fracture/dislocation. The tri-compartment joint spaces appear within no rmal limits. The overlying soft tissue appears unremarkable. IMPRESSION: There is no acute fracture or dislocation.ICD 10 NO FRACTURE, INITIAL EVALUATION
[2023-05-08] MEDS ORDERED: ACET/COD 300 MG/30 MG STARTER PACK 6 TAB BTL PO STA (22:42)
[2023-05-08 23:04] VITALS: BP 135/78; PULSE 78; RESP 16
== END 2023-05-08 23:04 | disposition home or self-care (01) ==
LOC: EC 20:10
DX: M25.561 Pain in right knee (principal); E66.9 Obesity, unspecified; I10 Essential (primary) hypertension; Z88.0 Allergy status to penicillin; Z68.42 Body mass index [BMI] 45.0-49.9, adult; Z87.891 Personal history of nicotine dependence
CPT/HCPCS: 73562; 99283; 96372; J1885

== ENCOUNTER 2023-09-24 17:44 | Emergency (ER) | payer OTHER ==
[2023-09-24 17:59] VITALS: BP 137/81; PULSE 82; RESP 18; TEMP 98.6
[2023-09-24] MEDS ORDERED: KETOROLAC 15 MG/ML 1 ML VIAL IM STA (18:00)
--- NOTE | 2023-09-24 18:09 | ED ---
Extremity Problem HPI - General Chief complaint: Extremity Problem,Nontraumatic Stated complaint: knee pain Time Seen by Provider: 09/24/23 17:50 Source: patient, RN notes reviewed Mode of arrival: ambulatory Limitations: no limitations - History of Present Illness Initial comments: Patient is a 38-year-old female presented to ER with chief complaint of right knee pain. Patient states this has been going on and off for about 6 months now. Patient describes her pain as a constant achy pain along the lateral joint line. She states she gets frequent sharp pains in the same area and it swells sometimes. Denies any radiation or paresthesias to her kaur or ankle. She denies any trauma or injury. Patient states she's been taking [id number] Motrin with slight relief. - Related Data Previous Rx's Medication Instructions Recorded Cyclobenzaprine [Flexeril] 10 mg PO TID PRN #15 tab 08/28/22 Ibuprofen [Motrin] 600 mg PO Q8HR PRN #20 tab 08/28/22 Acetaminophen-Codeine 300-30mg 1 - 2 tab PO Q4-6H PRN 3 Days #18 05/08/23 [Tylenol w/codeine #3] tablet Allergies Allergy/AdvReac Type Severity Reaction Status Date / Time amoxicillin AdvReac YEAST Verified 09/24/23 17:49 INFECTION Review of Systems ROS Statement: Those systems with pertinent positive or pertinent negative responses have been documented in the HPI. ROS Other: All systems not noted in ROS Statement are negative. Past Medical History Past Medical History: Hypertension Additional Past Medical History / Comment(s): Obstetric history: THis is her f irst . She has had care through [facility] with Dr Saavedra since 12 weeks. Her dating is by LMP and confirmed with early US. O neg, Rub Imm, RPR NR, Hep B neg. Did receive Rhogam on 3-14 at 29 weeks. normal anatomy US-male. History of Any Multi-Drug Resistant Organisms: None Reported Past Surgical History: Bariatric Surgery Additional Past Surgical History / Comment(s): Gastric Sleeve Procedure 2014 Past Anesthesia/Blood Transfusion Reactions: No Reported Reaction Past Psychological History: ADD/ADHD Smoking Status: Former smoker Past Alcohol Use History: None Reported Past Drug Use History: None Reported - Past Family History Father History Unknown: Yes Family Medical History: Diabetes Mellitus, Hypertension Mother History Unknown: Yes Family Medical History: Cancer, Diabetes Mellitus, Hypertension Brother(s) History Unknown: Yes Additional Family Medical History / Comment(s): brother was born wih cardica disease General Exam Limitations: no limitations General appearance: alert, in no apparent distress Respiratory exam: Present: normal lung sounds bilaterally. Absent: respiratory distress, wheezes, rales, rhonchi, stridor Cardiovascular Exam: Present: regular rate, normal rhythm, normal heart sounds. Absent: systolic murmur, diastolic murmur, rubs, gallop, clicks Extremities exam: Present: other (Crepitance to flexion of right knee, tenderness to valgus force. 2+ dorsalis pedis pulses Bilaterally, no ecchymosis or erythema noted of right knee.) Neurological exam: Present: alert, oriented X3, CN II-XII intact Psychiatric exam: Present: normal affect, normal mood Skin exam: Present: warm, dry, intact, normal color. Absent: rash Course Vital Signs 09/24/23 17:46 Temperature 98.6 F Pulse Rate 82 Respiratory 18 Rate Blood Pressure 137/81 O2 Sat by Pulse 98 Oximetry Medical Decision Making - Medical Decision Making Was pt. sent in by a medical professional or institution (, PA, DIRECTOR OF COMPENSATION, urgent care, hospital, or fdc...) When possible be specific @ -No Did you speak to anyone other than the patient for history (EMS, parent, family, police, friend...)? What history was obtained from this source @ -No Did you review nursing and triage notes (agree or disagree)? Why? @ -I reviewed and agree with nursing and triage notes Were old charts reviewed (outside hosp., previous admission, EMS record, old EKG, old radiological studies, urgent care reports/EKG's, fdc records)? Report findings @ -No old charts were reviewed Differential Diagnosis (chest pain, altered mental status, abdominal pain women, abdominal pain men, vaginal bleeding, weakness, fever, dyspnea, syncope, headache, dizziness, GI bleed, back pain, seizure, CVA, palpatations, mental health, musculoskeletal)? @ -Differential Musculoskeletal: Muscular strain, contusion, ligament sprain, fracture, arthritis, septic arthritis, bursitis, cellulitis, muscle spasm, nerve compression, DVT, arterial occlusion, herpes zoster, electrolyte abnormality, tumor.... This is not meant to be in all inclusive listble EKG interpreted by me (3pts min.). @ -None X-rays interpreted by me (1pt min.). @ -None done CT interpreted by me (1pt min.). @ -None done U/S interpreted by me (1pt. min.). @ -None done What testing was considered but not performed or refused? (CT, X-rays, U/S, labs)? Why? @ -None What meds were considered but not given or refused? Why? @ -None Did you discuss the management of the patient with other professionals (professionals i.e. Dr., PA, DIRECTOR OF COMPENSATION, lab, RT, psych nurse, social services aide, manager energy, teacher, security police officer, adult protective caseworker)? Give summary @ -No Was smoking cessation discussed for >3mins.? @ -No Was critical care preformed (if so, how long)? @ -No Were there social determinants of health that impacted care today? How? (Homelessness, low income, unemployed, alcoholism, drug addiction, transportation, low edu. Level, literacy, decrease access to med. care, senior care, rehab)? @ -No Was there de-escalation of care discussed even if they declined (Discuss DNR or withdrawal of care, Hospice)? DNR status @ -No What co-morbidities impacted this encounter? (DM, HTN, Smoking, COPD, CAD, Cancer, CVA, ARF, Chemo, Hep., AIDS, mental health diagnosis, sleep apnea, morbid obesity)? @ -Morbid obesity Was patient admitted / discharged? Hospital course, mention meds given and route, prescriptions, significant lab abnormalities, going to OR and other pertinent info. @ -Discharged. On examination there is crepitus noted to the lateral joint space of the right knee. X-ray of the right knee showed no acute fractures or dislocations. Patient received IM Toradol for pain control in the ER. Patient will be discharged in stable condition with follow-up to PCP and orthopedics. Patient expressed understanding and agreement with plan. Undiagnosed new problem with uncertain prognosis? @ -No Drug Therapy requiring intensive monitoring for toxicity (Heparin, Nitro, In sulin, Cardizem)? @ -No Were any procedures done? @ -No Diagnosis/symptom? @ -Right knee pain Acute, or Chronic, or Acute on Chronic? @ -Acute Uncomplicated (without systemic symptoms) or Complicated (systemic symptoms)? @ -Uncomplicated Side effects of treatment? @ -No Exacerbation, Progression, or Severe Exacerbation? @ -No Poses a threat to life or bodily function? How? (Chest pain, [place], [place], pneumonia, PE, COPD, DKA, ARF, appy, cholecystitis, CVA, Diverticulitis, Homicidal, Suicidal, threat to staff... and all critical care pts) @ -No - Radiology Data Radiology results: report reviewed, image reviewed Disposition Clinical Impression: Right knee pain Disposition: HOME SELF-CARE Condition: Stable Additional Instructions: Please return to the Emergency Department if symptoms worsen or any other concerns. Is patient prescribed a controlled substance at d/c from ED?: No Referrals: Bryan Benoit DO [Primary Care Provider] - 1-2 days Travis Sherwood MD [STAFF PHYSICIAN] - 1-2 days Time of Disposition: 18:50
--- NOTE | 2023-09-24 18:43 | XR ---
EXAMINATION TYPE: XR knee complete RT DATE OF EXAM: 09/24/2023 6:18 PM CLINICAL INDICATION:Female, 38 years old with history of pain; [facility] COMPARISON: None. TECHNIQUE: XR knee complete RT; examined in Frontal, lateral and oblique projections. FINDINGS: No evidence of any acute osseous pathology, soft tissue swelling, or joint effusion is no olamide. Tricompartmental osteophyte formation involving the tibial plateau and patella. Mild joint space eugene rowing. IMPRESSION: 1. No acute osseous pathology. 2. Mild osteoarthritic changes.
== END 2023-09-24 20:07 | disposition home or self-care (01) ==
LOC: EC 17:44
DX: M25.561 Pain in right knee (principal); I10 Essential (primary) hypertension; E66.01 Morbid (severe) obesity due to excess calories; Z68.42 Body mass index [BMI] 45.0-49.9, adult; Z86.59 Personal history of other mental and behavioral disorders; Z87.891 Personal history of nicotine dependence; Z88.0 Allergy status to penicillin
CPT/HCPCS: 96372 ×2; 99283 ×2; 73562; J1885

== ENCOUNTER → 2023-10-08 | Outpatient (CLI) | payer OTHER ==
--- NOTE | 2023-10-10 06:26 | MR ---
EXAMINATION TYPE: MR knee RT wo con DATE OF EXAM: 10/08/2023 COMPARISON: Right knee x-ray September 24, 2023 HISTORY: Right knee outer pain and swelling for 5 months TECHNIQUE: Multiplanar, multisequence images of the knee is performed without IV contrast. FINDINGS: Exam slightly suboptimal secondary to patient's large body habitus. MEDIAL MENISCUS: Anterior and posterior horns are intact without tear. LATERAL MENISCUS: Irregular increased signal anterior horn extends to articular surface sagittal imag e 29. CRUCIATE LIGAMENTS: The anterior and posterior cruciate ligaments are intact and unremarkable. COLLATERAL LIGAMENTS: The medial collateral ligament is intact and unremarkable. Biceps femoris is in tact. Iliotibial band and lateral collateral ligament show increased signal at this level. EXTENSOR MECHANISM: Visualized quadriceps and patellar tendons are intact. EFFUSION: No significant suprapatellar joint effusion. POPLITEAL CYST: Moderate size popliteal/fernandez cyst measuring 6.1 cm long axis sagittal image 10. TRICOMPARTMENT SPACES: Mild tricompartment joint space loss. No significant spurring. CARTILAGE: Tricompartment articular cartilage is preserved. BONE MARROW SIGNAL: No focal abnormal marrow signal is appreciated. OTHER: No additional significant abnormality is appreciated. IMPRESSION: 1. Full-thickness tear anterior horn of lateral meniscus. 2. Partial tearing of the lateral collateral ligament complex. 3. Moderate sized popliteal cyst. 4. Mild tricompartment degenerative changes.
== END | disposition home or self-care (01) ==
LOC: RADMRIMAIN 18:56
PROVIDERS: ATTEND Orthopaedic Surgery
DX: M17.11 Unilateral primary osteoarthritis, right knee (principal); M71.21 Synovial cyst of popliteal space [Baker], right knee; M23.341 Other meniscus derangements, anterior horn of lateral meniscus, right knee; M23.641 Other spontaneous disruption of lateral collateral ligament of right knee

== ENCOUNTER 2023-11-21 08:55 | Day surgery (SDC) | payer OTHER ==
[2023-11-17 14:22] VITALS: BMI 47.8
--- NOTE | 2023-11-20 09:09 | P.HPOR ---
History of Present Illness H&P Date: 11/20/23 Chief Complaint: Right knee pain The patient is a 38-year-old female who presents with progressive right knee pain for the past 2 years worsening over the past 6 months. She notes lateral and posterior pain with weightbearing activities. She notes stiffness along with buckling. She tried medications without much relief. Review of Systems As per HPI Past Medical History Past Medical History: GERD/Reflux, Hyperlipidemia, Hypertension Additional Past Medical History / Comment(s): Obstetric history: THis is her first . She has had care through [facility] with Dr Saavedra since 12 weeks. Her dating is by LMP and confirmed with early US. O neg, Rub Imm, RPR NR, Hep B neg. Did receive Rhogam on 314 at 29 weeks. normal anatomy US-male. History of Any Multi-Drug Resistant Organisms: None Reported Past Surgical History: Bariatric Surgery Additional Past Surgical History / Comment(s): Gastric Sleeve 2014. Past Anesthesia/Blood Transfusion Reactions: Motion Sickness Past Psychological History: ADD/ADHD, Anxiety Additional Psychological History / Comment(s): ADHD. Smoking Status: Former smoker Past Alcohol Use History: None Reported Additional Past Alcohol Use History / Comment(s): Quit smoking in 2021. Past Drug Use History: None Reported - Past Family History Father History Unknown: Yes Family Medical History: Diabetes Mellitus, Hypertension Mother History Unknown: Yes Family Medical History: Cancer, Diabetes Mellitus, Hypertension Brother(s) History Unknown: Yes Additional Family Medical History / Comment(s): Brother was born wih cardiac disease. Medications and Allergies Home Medications Medication Instructions Recorded Confirmed Type Ibuprofen [Motrin] 600 mg PO Q8HR PRN #20 tab 08/28/22 11/17/23 Rx Atorvastatin [Lipitor] 20 mg PO HS 11/17/23 11/17/23 History Biotin [Biotin Disolve] 5,000 mcg PO DAILY 11/17/23 11/17/23 History Cetirizine HCl [Zyrtec] 10 mg PO DAILY 11/17/23 11/17/23 History Dextroamphetamine/Amphetamine 10 mg PO DAILY 11/17/23 11/17/23 History Dextroamphetamine/Amphetamine 25 mg PO DAILY 11/17/23 11/17/23 History [Adderall Xr 25 mg Capsule] Ferrous Sulfate [Iron] 325 mg PO DAILY 11/17/23 11/17/23 History Metoprolol Succinate [Toprol XL] 50 mg PO QAM 11/17/23 11/17/23 History Omeprazole 20 mg PO QAM 11/17/23 11/17/23 History Sertraline [Zoloft] 100 mg PO DAILY 11/17/23 11/17/23 History hydroCHLOROthiazide [Hydrodiuril] 25 mg PO DAILY 11/17/23 11/17/23 History rOPINIRole HCL [Requip] 1 mg PO DAILY 11/17/23 11/17/23 History Allergies Allergy/AdvReac Type Severity Reaction Status Date / Time amoxicillin AdvReac YEAST Verified 11/17/23 14:01 INFECTION Physical Examination - Knee right Appearance: effusion Effusion grade: grade 2 Tenderness with palpation: medial, lateral Pain: throughout ROM Gait: limping ROM: extension: -10 degrees ROM: flexion: 90 degrees Crepitus with motion: Yes Strength: extension: 5/5 Strength: flexion: 5/5 Meniscal tests: lateral meniscal tests: positive, medial joint line pain: positive, lateral joint line pain: positive Results She is a well-developed well-nourished female approximately 5 foot 3, 270 pounds endomorphic habitus. HEENT exam is nonfocal, neck is supple. She has painless passive motion of the right hip. Straight leg raise is negative. She's tender about the medial and lateral joint line of the right knee. Collaterals are stable, Phoebe was negative, Williams elicits medial pain. Her distal neurovascular appears intact in the right lower extremity. - Diagnostic results Knee MRI: image reviewed (MRI of the right knee shows evidence of an anterior lateral meniscal tear.) Assessment and Plan Assessment: Right knee internal derangement/symptomatic lateral meniscal tear Plan: I talked to the patient at length regarding her condition and treatment options. At this point she remains symptomatic having pain and mechanical symptoms despite attempted conservative measures. After a thorough discussion she opts to proceed with surgery. We will plan to proceed with right knee arthroscopy with probable partial lateral meniscectomy. Risks and benefits were discussed in layman's terms. We will likely perform that as an outpatient procedure.
[~2023-11-21 08:55] MED LIST: DEXAMETHASONE SOD PHOSPHATE 4 MG/ML 1 ML VIAL IV ONE; LACTATED RINGERS 1,000 ML IV SCH; MIDAZOLAM 2 MG/2 ML VIAL IV PRN; ONDANSETRON 4 MG/2 ML VIAL IVP ONE; SCOPOLAMINE 1 MG/72 HR PATCH TRANSDERM ONE; ceFAZolin 3 GM in SODIUM CHLORIDE 0.9% 100 ML IVPB PRN
[2023-11-21] MEDS ORDERED: LACTATED RINGERS 1,000 ML IV ONE (10:20)
[2023-11-21 10:59] LABS: Basophils # (A) 0.1 k/uL (0-0.2); Basophils % (A) 1 %; Eosinophils # (A) 0.3 k/uL (0-0.7); Eosinophils % (A) 3 %; HCT 42.9 % (34.0-46.0); HGB 14.4 gm/dL (11.4-16.0); Lymphocytes # (A) 2.6 k/uL (1.0-4.8); Lymphocytes % (A) 28 %; MCH 30.5 pg (25.0-35.0); MCHC 33.5 g/dL (31.0-37.0); MCV 90.9 fL (80.0-100.0); Mean Platelet Volume 7.4; Monocytes # (A) 0.6 k/uL (0-1.0); Monocytes % (A) 6 %; Neutrophils # (A) 5.6 k/uL (1.3-7.7); Neutrophils % (A) 60 %; Platelet Count 331 k/uL (150-450); RBC 4.72 m/uL (3.80-5.40); RDW 12.6 % (11.5-15.5); WBC 9.4 k/uL (3.8-10.6)
[2023-11-21] MEDS ORDERED: PROPOFOL 10 MG/ML 20 ML VIAL IV ONE (11:01)
[2023-11-21] MEDS ORDERED: HYDROmorphone (PF) 1 MG/ML ONE (11:01)
[2023-11-21] MEDS ORDERED: MIDAZOLAM 2 MG/2 ML VIAL ONE (11:01)
[2023-11-21] MEDS ORDERED: SUCCINYLCHOLINE CHLORIDE 200 MG/10 ML VIAL IV ONE (11:01)
[2023-11-21] MEDS ORDERED: fentaNYL (PF) 50 MCG/ML 2 ML AMP ONE (11:01)
[2023-11-21] MEDS ORDERED: KETOROLAC 15 MG/ML 1 ML VIAL ONE (11:01)
[2023-11-21 11:04] VITALS: RESP 16
[2023-11-21] MEDS ORDERED: EPINEPHrine (PF) 1 ML in SODIUM CHLORIDE 0.9% IRRIGATIO 3,000 ML IRRIGATION ONE (11:21)
--- NOTE | 2023-11-21 11:38 | P.OP ---
Date of Procedure: 11/21/23 Preoperative Diagnosis: Right knee internal derangement Postoperative Diagnosis: Right knee anterior lateral meniscal tear Procedure(s) Performed: Right knee arthroscopic partial lateral meniscectomy Anesthesia: ROSAURAA Surgeon: Travis Sherwood Estimated Blood Loss (ml): 10 Pathology: none sent Condition: stable Disposition: PACU Indications for Procedure: The patient's a 38-year-old female who presents with progressive right knee pain and mechanical symptoms after previous injury despite conservative measures. A discussion of the risks and benefits of operative intervention versus continued conservative measures was made with patient. She opted to proceed with surgery. Operative risks to include infection, neurovascular injury, development of blood clots, possible incomplete resolution symptoms, possible worsening symptoms and need for subsequent procedures was discussed. Informed consent was obtained. Operative Findings: As below Description of Procedure: The patient was brought to the operating room, and after induction of general anesthesia examined the right knee. Collaterals were stable, Phoebe was negative, and posterior drawer was negative. The right lower extremity was prepped and draped in a normal fashion. A superior lateral portal was made through a 3 mm skin incision superior and lateral to the patella. This was used for outflow. A lateral portal was made through a 5 mm vertical skin incision lateral to the patella tendon above the joint line. Diagnostic arthroscopy was performed. On inspection of the medial compartment, no significant meniscal or cartilage pathology was noted.. On inspection of the notch, the anterior cruciate ligament appeared to be intact. On inspection of the lateral compartment, a complex tear involving the anterior horn of the lateral meniscus in the red-red junction was noted. This was debrided back to a stable base with a motorized shaver. The remaining lateral meniscus was stable and intact.. On inspection of the patellofemoral articulation were no significant cartilage pathology was noted.. The gutters were clear debris. The knee was then thoroughly irrigated. The portals were closed with Steri-Strips. A sterile dressing was applied in addition to a compression stocking. The patient was awoken from general anesthesia and transferred to recovery room in good condition. Blood loss was estimated at 10 mL. No complications were incurred.
[2023-11-21 11:40] LABS: Potassium 3.5 mmol/L (3.5-5.1)
[2023-11-21] MEDS: HYDROmorphone 0.5 MG/0.5 ML SYRINGE IVP PRN ×2 (12:05→12:22)
[2023-11-21 12:17] VITALS: TEMP 97
[2023-11-21] MEDS ORDERED: diphenhydrAMINE 50 MG/ML 1 ML VIAL IVP ONE (12:38)
[2023-11-21 13:29] VITALS: BP 109/74; PULSE 84
== END 2023-11-21 13:46 | disposition home or self-care (01) ==
LOC: OR 08:55
PROVIDERS: ATTEND Orthopaedic Surgery
DX: S83.271A Complex tear of lateral meniscus, current injury, right knee, initial encounter (principal); E78.5 Hyperlipidemia, unspecified; I10 Essential (primary) hypertension; K21.9 Gastro-esophageal reflux disease without esophagitis; F90.9 Attention-deficit hyperactivity disorder, unspecified type; Z79.899 Other long term (current) drug therapy; Z88.0 Allergy status to penicillin; F41.9 Anxiety disorder, unspecified; Z87.891 Personal history of nicotine dependence; X58.XXXA Exposure to other specified factors, initial encounter
CPT/HCPCS: 81025; 80051; 85025; 29881; J2250; J0330; J1200; J1100; J0690; J2405; J0171; J3010; J1170 ×2; J1885; J2704

== ENCOUNTER 2023-11-28 17:53 | Emergency (ER) | payer OTHER ==
--- NOTE | 2023-11-28 18:10 | ED ---
Extremity Problem HPI - General Source: patient, RN notes reviewed Mode of arrival: ambulatory Limitations: no limitations - History of Present Illness MD Complaint: extremity pain <Liyah Henry - Last Filed: 11/28/23 18:16> <Cinthya Keane - Last Filed: 11/28/23 19:50> - General Chief complaint: Extremity Problem,Nontraumatic Stated complaint: Rt knee pain Time Seen by Provider: 11/28/23 18:07 - History of Present Illness Initial comments: This is a 38 year old female who presents to the emergency department for right knee pain. She had surgery on her meniscus with Dr. Sherwood one week ago, and yesterday the pain started to increase. Her son sat on her knee while she was in bed yesterday, and his feet ended up kicking her in the knee last night as well, which she believes exacerbated the pain. (Liyah Henry) 38-year-old female presenting with chief complaint of right knee pain. Patient had a lateral meniscectomy with Dr. Sherwood one week ago. The patient states that last night while laying in bed her 6-year-old son sat on her knee and then accidentally kicked her knee later on tonight. She has had worsening pain throughout the day. She has been taking her [place] prescribed after her surgery which has not been alleviating the pain. She has no discoloration, numbness or tingling. She has normal range of motion. No obvious deformity. She does have some swelling around the knee which is to be expected in the postop timeframe (Cinthya Keane) - Related Data Home Medications Medication Instructions Recorded Confirmed Atorvastatin [Lipitor] 20 mg PO HS 11/17/23 11/21/23 Biotin [Biotin Disolve] 5,000 mcg PO DAILY 11/17/23 11/21/23 Cetirizine HCl [Zyrtec] 10 mg PO DAILY 11/17/23 11/21/23 Dextroamphetamine/Amphetamine 10 mg PO DAILY 11/17/23 11/21/23 Dextroamphetamine/Amphetamine 25 mg PO DAILY 11/17/23 11/21/23 [Adderall Xr 25 mg Capsule] Ferrous Sulfate [Iron] 325 mg PO DAILY 11/17/23 11/17/23 Metoprolol Succinate [Toprol XL] 50 mg PO QA 11/17/23 11/21/23 Omeprazole 20 mg PO QAM 11/17/23 11/21/23 Sertraline [Zoloft] 100 mg PO DAILY 11/17/23 11/21/23 hydroCHLOROthiazide [Hydrodiuril] 25 mg PO DAILY 11/17/23 11/21/23 rOPINIRole HCL [Requip] 1 mg PO DAILY 11/17/23 11/21/23 Previous Rx's Medication Instructions Recorded Ibuprofen [Motrin] 600 mg PO Q8HR PRN #20 tab 08/28/22 HYDROcodone/APAP 5-325MG [[place] 1 tab PO Q6HR PRN #18 tab 11/21/23 5-325] Allergies Allergy/AdvReac Type Severity Reaction Status Date / Time amoxicillin AdvReac YEAST Verified 11/28/23 18:10 INFECTION Review of Systems ROS Other: All systems not noted in ROS Statement are negative. <Liyah Henry - Last Filed: 11/28/23 18:16> ROS Other: All systems not noted in ROS Statement are negative. <Cinthya Keane - Last Filed: 11/28/23 19:50> ROS Statement: Those systems with pertinent positive or pertinent negative responses have been documented in the HPI. Past Medical History Past Medical History: GERD/Reflux, Hyperlipidemia, Hypertension Additional Past Medical History / Comment(s): Obstetric history: THis is her first . She has had care through [facility] with Dr Saavedra since 12 weeks. Her dating is by LMP and confirmed with early US. O neg, Rub Imm, RPR NR, Hep B neg. Did receive Rhogam on 314 at 29 weeks. normal anatomy US-male. History of Any Multi-Drug Resistant Organisms: None Reported Past Surgical History: Bariatric Surgery Additional Past Surgical History / Comment(s): Gastric Sleeve 2014. Past Anesthesia/Blood Transfusion Reactions: Motion Sickness Past Psychological History: ADD/ADHD, Anxiety Additional Psychological History / Comment(s): ADHD. Smoking Status: Former smoker Past Alcohol Use History: None Reported Additional Past Alcohol Use History / Comment(s): Quit smoking in 2021. Past Drug Use History: None Reported - Past Family History Father History Unknown: Yes Family Medical History: Diabetes Mellitus, Hypertension Mother History Unknown: Yes Family Medical History: Cancer, Diabetes Mellitus, Hypertension Brother(s) History Unknown: Yes Additional Family Medical History / Comment(s): Brother was born wih cardiac disease. <Liyah Henry - Last Filed: 11/28/23 18:16> General Exam <Liyah Henry - Last Filed: 11/28/23 18:16> General appearance: alert, in no apparent distress Head exam: Present: atraumatic, normocephalic Eye exam: Present: normal appearance Neck exam: Present: normal inspection Respiratory exam: Absent: respiratory distress Cardiovascular Exam: Present: regular rate Right Knee exam: Present: tenderness, swelling Lower Leg exam: Present: normal inspection Ankle exam: Present: normal inspection Neurovascular tendon exam: Present: no vascular compromise Neurological exam: Present: alert, oriented X3 Psychiatric exam: Present: normal affect, normal mood Skin exam: Present: warm, dry <Cinthya Keane - Last Filed: 11/28/23 19:50> - General Exam Comments Initial Comments: Visual Physical Exam Vital signs reviewed General: Well-appearing, nontoxic, no acute distress. Head: Normocephalic, atraumatic Eyes: PERRLA, EOMI ENT: Airway patent Chest: Nonlabored breathing Skin: No visual rash, normal skin tone Neuro: Alert and oriented 3 Musculoskeletal: No gross abnormalities (Liyah Henry) Course Vital Signs 11/28/23 18:08 Temperature 98.4 F Pulse Rate 67 Respiratory 18 Rate Blood Pressure 107/72 O2 Sat by Pulse 97 Oximetry Medical Decision Making <Liyah Henry - Last Filed: 11/28/23 18:16> <Cinthya Keane - Last Filed: 11/28/23 19:50> - Medical Decision Making I performed the QuickNote portion of this chart. Signed Liyah Henry PA-C. (Liyah Henry) Was pt. sent in by a medical professional or institution (SOWMY[facility] Silva, GANG SUPERVISOR, urgent care, hospital, or snf...) When possible be specific @ -No Did you speak to anyone other than the patient for history (EMS, parent, family, police, friend...)? What history was obtained from this source @ -No Did you review nursing and triage notes (agree or disagree)? Why? @ -I reviewed and agree with nursing and triage notes Were old charts reviewed (outside hosp., previous admission, EMS record, old EKG , old radiological studies, urgent care reports/EKG's, snf records)? Report findings @ -No old charts were reviewed Differential Diagnosis (chest pain, altered mental status, abdominal pain women, abdominal pain men, vaginal bleeding, weakness, fever, dyspnea, syncope, headache, dizziness, GI bleed, back pain, seizure, CVA, palpatations, mental health, musculoskeletal)? @ -Differential Musculoskeletal Muscular strain, contusion, ligament sprain, fracture, arthritis, septic arthritis, bursitis, cellulitis, muscle spasm, nerve compression, DVT, arterial occlusion, herpes zoster, electrolyte abnormality, tumor.... This is not meant to be in all inclusive list EKG interpreted by me (3pts min.). @ -As above X-rays interpreted by me (1pt min.). @ -X-ray of the knee shows no acute fracture or dislocation CT interpreted by me (1pt min.). @ -None done U/S interpreted by me (1pt. min.). @ -None done What testing was considered but not performed or refused? (CT, X-rays, U/S, labs)? Why? @ -None What meds were considered but not given or refused? Why? @ -None Did you discuss the management of the patient with other professionals (professionals i.e. , PA, GANG SUPERVISOR, lab, RT, psych nurse, social media assistant, educational interpreter, teacher, ship's electronic warfare officer, outsole caser)? Give summary @ -No Was smoking cessation discussed for >3mins.? @ -No Was critical care preformed (if so, how long)? @ -No Were there social determinants of health that impacted care today? How? (Homelessness, low income, unemployed, alcoholism, drug addiction, transportation, low edu. Level, literacy, decrease access to med. care, detention, rehab)? @ -No Was there de-escalation of care discussed even if they declined (Discuss DNR or withdrawal of care, Hospice)? DNR status @ -No What co-morbidities impacted this encounter? (DM, HTN, Smoking, COPD, CAD, Cancer, CVA, ARF, Chemo, Hep., AIDS, mental health diagnosis, sleep apnea, morbid obesity)? @ -None Was patient admitted / discharged? Hospital course, mention meds given and route, prescriptions, significant lab abnormalities, going to OR and other pertinent info. @ -38-year-old female presenting with chief complaint of right knee pain. She had a lateral meniscus to me about one week ago. Her son sat on and kicked her knee last night. History and physical exam were conducted. She is neurovascularly intact. Knee x-ray shows no fracture or dislocation. She is treated with Toradol and instructed to follow-up with Dr. Oneal at her scheduled appointment on the . Follow-up with PCP. Report back to ER with any new or worsening symptoms. Discussed return parameters and answered all questions. Patient conveyed verbal understanding and agreed to the plan. I discussed this case in detail with my attending Dr. Morelos Undiagnosed new problem with uncertain prognosis? @ -No Drug Therapy requiring intensive monitoring for toxicity (Heparin, Nitro, Insulin, Cardizem)? @ -No Were any procedures done? @ -No Diagnosis/symptom? @ - Knee pain Acute, or Chronic, or Acute on Chronic? @ -Acute Uncomplicated (without systemic symptoms) or Complicated (systemic symptoms)? @ -Uncomplicated Side effects of treatment? @ -No Exacerbation, Progression, or Severe Exacerbation? @ -No Poses a threat to life or bodily function? How? (Chest pain, [place], AR, pneumonia, PE, COPD, DKA, ARF, appy, cholecystitis, CVA, Diverticulitis, Homicidal, Suicidal, threat to staff... and all critical care pts) @ -No (Cinthya Keane) Disposition <Liyah Henry - Last Filed: 11/28/23 18:16> Is patient prescribed a controlled substance at d/c from ED?: No Time of Disposition: 19:27 <Cinthya Keane - Last Filed: 11/28/23 19:50> Clinical Impression: Knee pain Disposition: HOME SELF-CARE Condition: Good Instructions (If sedation given, give patient instructions): Knee Pain (ED) Additional Instructions: Follow up with surgeon. Report back to ER with any new or worsening symptoms. Referrals: Bryan Benoit DO [Primary Care Provider] - 1-2 days Travis Sherwood MD [STAFF PHYSICIAN] - 1-2 days
[2023-11-28 18:21] VITALS: RESP 18; TEMP 98.4
--- NOTE | 2023-11-28 18:28 | XR ---
EXAMINATION TYPE: XR knee complete RT DATE OF EXAM: 11/28/2023 CLINICAL HISTORY: pain TECHNIQUE: Three views of the right knee are obtained. COMPARISON: None. FINDINGS: There is no acute fracture/dislocation. The tri-compartment joint spaces appear within no rmal limits. The overlying soft tissue appears unremarkable. Minutes patellar joint effusion. IMPRESSION: There is no acute fracture or dislocation.ICD 10 NO FRACTURE, INITIAL EVALUATION
[2023-11-28] MEDS ORDERED: KETOROLAC 15 MG/ML 1 ML VIAL IM STA (19:20)
[2023-11-28 20:08] VITALS: BP 97/61; PULSE 66
== END 2023-11-28 20:49 | disposition home or self-care (01) ==
LOC: EC 17:53
DX: M25.561 Pain in right knee (principal); I10 Essential (primary) hypertension; K21.9 Gastro-esophageal reflux disease without esophagitis; E78.5 Hyperlipidemia, unspecified; F41.9 Anxiety disorder, unspecified; F90.9 Attention-deficit hyperactivity disorder, unspecified type; Z79.899 Other long term (current) drug therapy; Z88.0 Allergy status to penicillin; Z87.891 Personal history of nicotine dependence; W51.XXXA Accidental striking against or bumped into by another person, initial encounter
CPT/HCPCS: 73562; 99283; 96372; J1885